=== PATIENT | female | born 1955 | race Caucasian/White ===

== ENCOUNTER 2017-10-28 09:04 | Day surgery (SDC) | payer OTHER ==
[2017-10-27 12:28] VITALS: BMI 31.1
== END 2017-10-28 10:58 | disposition home or self-care (01) ==
LOC: SDC 09:04
PROVIDERS: ATTEND Orthopaedic Surgery Hand Surgery
DX: T23.371A Burn of third degree of right wrist, initial encounter (principal); S63.042A Subluxation of carpometacarpal joint of left thumb, initial encounter; M25.341 Other instability, right hand; B96.89 Other specified bacterial agents as the cause of diseases classified elsewhere; Z53.09 Procedure and treatment not carried out because of other contraindication; X08.8XXA Exposure to other specified smoke, fire and flames, initial encounter; Y93.G3 Activity, cooking and baking

== ENCOUNTER 2017-12-04 11:23 | Outpatient (CLI) | payer OTHER ==
[2017-12-04 12:36] LABS: #Eosinphils 0.1 thou/uL (0.0-0.7); #Monocytes 0.5 thou/uL (0.11-0.59); #Neutrophils 4.9 thou/uL (1.40-6.50); %Basophils 0.3 % (0.0-1.0); %Eosinophils 1.7 % (0.0-10.0); %Lymphocytes 26.5 % (21.0-51.0); %Monocytes 6.4 % (0.0-10.0); %Neutrophils 65.1 % (42.0-75.0); Hemoglobin 12.4 g/dL (12.0-16.0); Mean Corpuscular HGB CONC 33.1 g/dL (32.0-36.0); Mean Corpuscular Hemoglobin 27.1 pg (27.0-31.0); Mean Corpuscular Volume 82.1 fL (78.0-98.0); Mean Platelet Volume 6.5 fL (7.4-10.4); Platelet Count 289 thou/uL (130-400); RBC Distribution Width 13.2 % (11.5-14.5); Red Blood Cell (RBC) Count 4.58 mill/uL (4.20-5.40); White Blood Cell (WBC) Count 7.6 thou/uL (4.8-10.8)
[2017-12-04 12:37] LABS: Bilirubin Negative (Negative); Blood, Urine Negative (Negative); Clarity CLEAR (Clear); Glucose, Urine (Dipstick) Negative (Negative); Leukocyte Negative (Negative); Nitrite Negative (Negative); Protein, Urine (Dipstick) Negative (Neg-Trace); Specific Gravity, Urine 1.019 (1.002-1.036); Urobilinogen 0.2 mg/dL (0.2-1.0)
[2017-12-04 12:39] LABS: Bacteria/HPF None Seen HPF (None Seen); Hyaline Casts/LPF 0-3 HYALINE CAST LPF (0-3 Hyaline); Pathc Cast-AUWi Flag 0.58 (0-2.49); RBC/HPF 0-3 HPF (0-3); Squamous Epithelial 0-3 HPF (0-3); WBC/HPF 0-3 HPF (0-3)
--- NOTE | 2017-12-04 12:43 | RAD ---
CHEST TWO VIEWS: HISTORY: Preop. COMPARISON: Radiograph from 2012. FINDINGS: Lungs without focal confluent air space consolidation, pneumothorax, or effusion. The cardiac silhou ette and mediastinal contour are within normal limits. No acute osseous abnormality. IMPRESSION: No acute intrathoracic abnormality. POS: ZAIDAH
[2017-12-04 12:58] LABS: Anion Gap 12 mmol/L (10-20); BUN (Urea Nitrogen) 22 mg/dL (9.8-20.1); Calc. Creatinine Clearance 0 mL/min (70-130); Calcium 9.5 mg/dL (7.8-10.44); Carbon Dioxide 27 mmol/L (23-31); Chloride 102 mmol/L (98-107); Estimated GFR-MDRD 67; Glucose 97 mg/dL (80-115); Potassium 3.7 mmol/L (3.5-5.1); Sodium 137 mmol/L (136-145)
== END 2017-12-04 11:24 | disposition home or self-care (01) ==
LOC: LABBT 11:23
PROVIDERS: ATTEND Orthopaedic Surgery Hand Surgery
DX: Z01.818 Encounter for other preprocedural examination (principal); S63.042A Subluxation of carpometacarpal joint of left thumb, initial encounter; G56.01 Carpal tunnel syndrome, right upper limb; M25.341 Other instability, right hand; M65.331 Trigger finger, right middle finger
CPT/HCPCS: 71046; 80048; 81001; 85025; 93005; 93010

== ENCOUNTER 2017-12-05 09:55 | Day surgery (SDC) | payer OTHER ==
[2017-12-04 11:36] VITALS: BMI 31.1
[~2017-12-05 09:55] MED LIST: Bupivacaine HCl 0.5%/Epinephrine 1:200,000/PF 30 ml Vial ONE; Dexamethasone 20 MG/5 ML VIAL ONE; Ketorolac Tromethamine 30 MG/ML VIAL ONE; Ondansetron HCl/PF 4 MG/2 ML Vial ONE; PHENYLEPHRINE-NS 100 MCG/ML 10 ML SYRINGE ONE; PROPOFOL 200 MG/20 ML VIAL ONE; ePHEDrine/0.9% NaCl/PF SYRINGE 50 mg/10 ml ONE
[2017-12-05] MEDS ORDERED: Vancomycin HCl 1.5 GM in Sodium Chloride 0.9% 250 ML 300 ML IVPB SCH (10:30)
[2017-12-05] MEDS ORDERED: Fentanyl 100 MCG/2 ML VIAL ONE ×2 (11:14→12:22)
[2017-12-05] MEDS ORDERED: Midazolam HCl 2 mg/2 ml Vial ONE ×2 (11:14→12:22)
[2017-12-05] MEDS ORDERED: Bupivacaine PF 0.5% 30 ML VIAL ONE (12:22)
[2017-12-05] MEDS ORDERED: Betamet Acet/Betamet Na Ph 30 MG/5 ML VIAL ONE (12:22)
[2017-12-05] MEDS ORDERED: Sodium Chloride 0.9% 10 ML ONE (12:22)
[2017-12-05] MEDS ORDERED: Bacitracin Zinc Ointment 30 gm TUBE ONE (12:22)
--- NOTE | 2017-12-05 16:32 | RAD ---
INTRAOPERATIVE FLUOROSCOPY 12/05/17 HISTORY: Wrist injection. EXPOSURE: 16.8 seconds. 0.31 mGy. FINDINGS: Three fluoroscopic images demonstrate a small needle into the first carpometacarpal joint space. IMPRESSION: Fluoroscopy as above. POS: SACHA
--- NOTE | 2017-12-05 16:33 | RAD ---
INTRAOPERATIVE FLUOROSCOPY 12/05/17 HISTORY: Injection. EXPOSURE: 116.5 seconds. FINDINGS: Five fluoroscopic images demonstrate a needle at the level of the distal first metacarpal. Retractor and metallic devices project over the base of the first and second metacarpal. IMPRESSION: Fluoroscopy as above. POS: SACHA
[2017-12-05] MEDS ORDERED: Ketorolac Tromethamine 30 MG/ML VIAL ONE (16:42)
[2017-12-05] MEDS ORDERED: traMADol HCl 50 MG TAB ONE (17:43)
--- NOTE | 2017-12-08 14:03 | OP ---
DATE OF SURGERY: 12/05/2017 PREOPERATIVE DIAGNOSES: 1. Right thumb metacarpophalangeal joint laxity capsule with hyperextension volar capsular laxity. 2. Right carpal tunnel syndrome. 3. Right middle finger A1 eugenie tenosynovitis with trigger. 4. 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 5. Left side: Left thumb carpometacarpal joint osteoarthritis, moderate. PROCEDURES PERFORMED: 1. Left thumb carpometacarpal joint injection with 2 mL Celestone/betamethasone under fluoroscopy/C- arm. 2. Right thumb carpometacarpal joint reduction from subluxation position. 3. Application of Arthrex TightRope. 4. Extensor tendon transfer extensor carpi radialis for ligament replacement without tendon interpos ition. 5. Right carpal tunnel release. 6. Right A1 eugenie release/trigger digit release. 7. Right thumb metacarpophalangeal joint capsulodesis as capsulotomy with repair and pinning. 8. Application of short-arm splint. TOURNIQUET TIME: 126 minutes total. ESTIMATED BLOOD LOSS: 20 mL. ANESTHESIA: General LMA technique augmented by preoperative scalene block, there was highly effectiv e. Codes for the procedure are as follows: 03231; 01491; 73251; 69478; 00756; 24723; 93981. DESCRIPTION OF PROCEDURE: After successful general LMA technique, the limb was prepped and draped. A well-padded nonsterile tourniquet was applied high in the mid arm using a complete roll of 4 inch c ast padding to protect the underlying structures. We then did time out, the block was excellent, we outlined all the incisions to include the palmar thumb incision over the MP joint and proximal to the middle finger, A1 eugenie release site, the second CMC incision to harvest the extensor carpi radiali s longus tendon, and we used the old thumb carpometacarpal joint incision. It was obvious she had 2 incisions where she had flexor carpi radialis had been harvested so it was not an option, and she had already had surgery through the abductor pollicis region, so we felt that an ECRL was the best tendo n along with the TightRope for stability as well. First, with limb exsanguinated, tourniquet inflated to 250 mmHg pressure, we then made a 1-cm curvili near incision along the palmar crease in line with the middle finger carried through skin and subcuta neous tissue, visualized under the digital nerves on both sides and then released in the midline unde r direct visualization of the A1 eugenie. Using combination of Gila and a tenotomy scissors, inspec anali the tendon with a Ragnell 360 degrees. There is no ganglion or other mass. We irrigated this ar ea with per 1 mL of Celestone here. We then made an incision in line with the ring finger, 2.5-cm long, began 5 mm distal to the volar wr ist flexion crease and close the capsule to skin and subcutaneous tissue until we visualized th e transcarpal ligament was thin and its distal half was very thick and its proximal half where there was some compression of the nerve. Released it completely under direct visualization beginning in th e mid portion distally using a Gila blade in combination with tenotomy scissors and from the mid po rtion proximally. There was minimal stippling and proximal portion of the carpal canal. I placed 2 mL of Celestone on the nerve, then we closed these 2 incisions with interrupted 4-0 nylon in a mattress pattern. We then approached the thumb metacarpophalangeal joint made a zigzag incision, beginning 5 mm distal to the joint and coursing 1 cm proximal to the joint to expose digital nerves and protected them. I then made a V-shaped incision beginning just distal to the sesamoids, through the volar capsule. We then used a double arm needle 4-0 Prolenes in a [id number] with the distal going underneath the proximal. We placed a suture through the capsule and then flexed the joint 20 degrees and placed a K -wire across the MP joint under C-arm supervision at this point and then tied the sutures with the th umb, pinned at 20 degrees of flexion and metacarpophalangeal joint. We then closed this incision wit h interrupted 4-0 nylon. We then made a curvilinear incision over the metacarpophalangeal joint, over the carpometacarpal join t, visualized radial nerves. We released the thenar muscles from their fascial attachment on the mid line at the base of the thumb metacarpal expand to radial nerve branches. We then exposed the carpom etacarpal joint and found again that there was a small formation at base of thumb, the thumb wa s almost completely subluxed proximal and scaphoid. Released the capsular tissue, preserving the cap stephanie, visualized at the old flexor carpi radialis tendon seemed to have eroded through the bone, ther e was a remnant line and deep in the joint. This was resected as well. We then freed the thumb, fou nd the old tunnel and made a slightly different tunnel later harvesting of the extensor carpi radiali s longus. We then placed the TightRope under direct visualization from the 2 mm distal to the base o f the thumb metacarpal into the proximal third of the index finger metacarpal and from the sagittal p agata view midway between the palmar dorsal skin on the ulnar aspect of the index finger metacarpal. This wound was also used that extended proximally for about 9 cm to visualize the extensor carpi radi alvarez longus. We then harvested the radial 1/2, a 9 cm long segment, and then we did through the tunn el we created, pulled it back underneath the abductor pollicis longus brought underneath the radial n erve branches as well as the abductor tendon, so we could reach itself. We held it in this position, and then reduced the thumb to the point where it was 2 mm distal to the base of the second metacarpa l and then tied the TightRope with the thumb in 45 degrees abduction. With the TightRope tied as snu ggly, patient could passively achieve opposition, and bring the thumb ulnar aspect down against the radial aspect of the index finger to close the first webspace. Once we had done this, we then t ied the extensor carpi radialis 1/2 graft as it emerged from the bone, as it went into the abductor p ollicis, and then weaved it into itself and tied at 2 spots as if there was a Pulvertaft weave-type g raft. This gave excellent tension on the tendon. We now released the tourniquet, we had excellent hemostasis with already closed wounds, had hemostasi s in the thenar wound as well as the dorsal wound, we closed the retinacular window that we created t o harvest the tendon, we protected the extensor pollicis longus, and a retinacular window was closed with a running 3-0 Monocryl. We used a running 4-0 Monocryl for subcutaneous closure at both wounds just after using a 2-0 Vicryl to close the capsule over the CMC as well as reapplied the fascia of th e thenar muscles back to this bony attachment. Hemostasis was excellent. We then closed the skin in two layers with a running 4-0 Monocryl to both the thumb and the second carpometacarpal joint incisi on, which was used to harvest the tendon. Final closure of the epidermis was done with interrupted 4 -0 nylon mattress pattern. We then applied a bulky dressing, we cut the K-wire and bent it with 2-mm protruding a 90 degree angle. We padded this placed bacitracin, Adaptic and all wounds, 4 x 4's, Ke rlix with the thumb abducted approximately 45 degrees at the first webspace and in neutral in relatio n to the index finger. A thumb spica splint was applied, exposing the thumbnail and the patient left the operating room without evidence of anesthetic or operative complication.
== END 2017-12-05 18:10 | disposition home or self-care (01) ==
LOC: SDC 09:55
PROVIDERS: ATTEND Orthopaedic Surgery Hand Surgery
PROC: 0LN70ZZ Release Right Hand Tendon, Open Approach (ICD-10-PCS; principal; 2017-12-05)
PROC: 0RGU04Z Fusion of Right Metacarpophalangeal Joint with Internal Fixation Device, Open Approach (ICD-10-PCS; principal; 2017-12-05)
PROC: 01N40ZZ Release Ulnar Nerve, Open Approach (ICD-10-PCS; principal; 2017-12-05)
PROC: 0RGU07Z Fusion of Right Metacarpophalangeal Joint with Autologous Tissue Substitute, Open Approach (ICD-10-PCS; principal; 2017-12-05)
DX: S63.041A Subluxation of carpometacarpal joint of right thumb, initial encounter (principal); M24.241 Disorder of ligament, right hand; G56.01 Carpal tunnel syndrome, right upper limb; M65.841 Other synovitis and tenosynovitis, right hand; M65.331 Trigger finger, right middle finger; M18.12 Unilateral primary osteoarthritis of first carpometacarpal joint, left hand; I10 Essential (primary) hypertension; J45.909 Unspecified asthma, uncomplicated; K21.9 Gastro-esophageal reflux disease without esophagitis; F41.9 Anxiety disorder, unspecified; E03.9 Hypothyroidism, unspecified; E78.00 Pure hypercholesterolemia, unspecified; K58.9 Irritable bowel syndrome, unspecified; Z79.899 Other long term (current) drug therapy; Z88.5 Allergy status to narcotic agent; Z88.8 Allergy status to other drugs, medicaments and biological substances
CPT/HCPCS: 76001; 96374; A4216; J0670; J0702; J1100; J1885; J2250; J2405; J2704; J3010; J3370; J3490; J7050; S0020